=== PATIENT | female | born 1975 | race Asian ===

== ENCOUNTER 2017-11-27 11:47 | Emergency (ER) | payer OTHER ==
[~2017-11-27] VITALS: Ht 157.5 cm; Wt 43.8 kg
[2017-11-27 12:23] LABS: HEMATOCRIT 36.9 % (36.0-46.0); MCH 29.8 PG (29.0-34.0); MCHC 32.5 G/DL (30.0-36.0); MCV 91.6 FL (83-99); PLATELET COUNT 252 K/uL (156-360); RBC DIS.WIDTH-CV 12.1 % (11.8-14.6); RBC DIS.WIDTH-SD 40.9 % (39-53); RED BLOOD COUNT 4.03 M/uL (3.80-5.20); WHITE BLOOD COUNT 6.9 K/uL (4.1-10.2)
[2017-11-27 12:32] LABS: ALBUMIN 4.6 g/dL (3.2-4.8); CHLORIDE 107 mEq/L (99-109); SODIUM 140 mEq/L (136-147)
[2017-11-27 12:34] LABS: GLUCOSE 84 mg/dL (70-99); TOTAL PROTEIN 7.9 g/dL (6.4-8.3)
[2017-11-27 12:36] LABS: TOTAL BILIRUBIN 0.9 mg/dL (0.0-1.0)
[2017-11-27 12:38] LABS: ALKALINE PHOSPHATASE 64 IU/L (3-129); CREATININE 0.6 mg/dL (0.6-1.3); GFR ESTIMATE (CALCULATED) > 59 mL/min/
[2017-11-27 12:39] LABS: UREA NITROGEN (BUN) 15 mg/dL (9-23)
[2017-11-27 12:40] LABS: AST (GOT) 17 IU/L (2-34)
[2017-11-27 12:41] LABS: ALT (GPT) 12 IU/L (3-49); LIPASE 21 U/L (1.0-51.0)
[2017-11-27 12:43] LABS: APPEARANCE CLEAR ((CLEAR)); BILIRUBIN NEGATIVE; BLOOD SMALL; COLOR STRAW ((YELLOW)); GLUCOSE (STRIP) NEGATIVE; KETONES NEGATIVE; LEUKOCYTES NEGATIVE; NITRITE NEGATIVE; PROTEIN (STRIP) NEGATIVE; UROBILINOGEN 0.2 MG/DL (0.2-1.0)
[2017-11-27 12:46] LABS: BACTERIA NONE SEEN /HPF; EPITHELIAL CELLS RARE /HPF; MUCUS TRACE /LPF; RED BLOOD CELLS 0-5 /HPF (0-5); UCUL ADDED? NO; WHITE BLOOD CELLS 0-5 /HPF (0-5)
[2017-11-27 12:47] LABS: QUANTITATIVE HCG < 4.0 MIU/ML
[2017-11-27] MEDS ORDERED: COLACE100 MG PO (14:16)
[2017-11-27] MEDS ORDERED: BENTYL10 MG PO (14:16)
[2017-11-27 15:06] VITALS: BP 125/80
== END 2017-11-27 15:07 | disposition home or self-care (01) ==
LOC: EME 11:47
PROVIDERS: Physician Assistant
DX: R10.9 Unspecified abdominal pain (principal); N20.0 Calculus of kidney; K42.9 Umbilical hernia without obstruction or gangrene; N85.4 Malposition of uterus
CPT/HCPCS: 74176; 80053; 81003; 83690; 84702; 85027; 99281; 99284